=== PATIENT | female | born 1955 | race Caucasian/White ===

== ENCOUNTER 2022-04-02 09:28 | Outpatient (CLI) | payer OTHER, MEDICARE | END 2022-04-02 09:29 | disposition home or self-care (01) | LOC: CSHCT 09:28 | PROVIDERS: ATTEND Nurse Practitioner Adult Health | DX: Z12.2 Encounter for screening for malignant neoplasm of respiratory organs (principal); F17.210 Nicotine dependence, cigarettes, uncomplicated; J98.4 Other disorders of lung | CPT/HCPCS: 71271 ==

== ENCOUNTER 2024-10-25 12:14 | Outpatient (CLI) | payer OTHER | END 2024-10-25 12:15 | disposition home or self-care (01) | LOC: CSHCP 12:14 | PROVIDERS: ATTEND Student in an Organized Health Care Education/Training Program | DX: R91.1 Solitary pulmonary nodule (principal); J44.9 Chronic obstructive pulmonary disease, unspecified | CPT/HCPCS: 94060; 94729; 94760 ==